=== PATIENT | male | born 1995 | race Caucasian/White ===

== ENCOUNTER 2016-06-25 01:38 | Emergency (ER) | payer OTHER ==
[2016-06-25] MEDS ORDERED: KETOROLAC 30 MG/ML VIAL (J1885) As Ordered ONE (02:43)
[2016-06-25 03:36] LABS: ANION GAP 9 MEQ/L (8-16); BLOOD UREA NITROGEN 12 MG/DL (7-18); CALCIUM LEVEL 8.7 MG/DL (8.5-10.1); CARBON DIOXIDE LEVEL 29 MEQ/L (21-32); CHLORIDE LEVEL 106 MEQ/L (98-107); GLOMERULAR FILTRATION RATE > 60.0 (>60); GLUCOSE, FASTING 85 MG/DL (70-105); POTASSIUM SERUM 3.3 MEQ/L (3.5-5.1); SODIUM LEVEL 144 MEQ/L (136-145)
[2016-06-25] MEDS ORDERED: ISOVUE-370 76% 100ML VIAL (Q9967) As Ordered ONE (03:59)
--- NOTE | 2016-06-25 06:10 | REPUSA ---
CLINICAL HISTORY: Pain, exclude PE. TECHNIQUE: Multiple incremental axial, coronal and oblique images are obtained from the thoracic inle t to the upper abdomen. Intravenous contrast material was administered as per pulmonary embolism prot ocol. COMMENTS: There is excellent opacification of pulmonary arterial system without evidence for pulmonary embolism . Aorta is of normal caliber without evidence for dissection or aneurysm. There is no evidence of pleural or parenchymal mass. There are no pleural effusions. There is no evid ence of hilar or mediastinal lymphadenopathy. The heart and great vessels are within normal limits. Images of the upper abdomen demonstrate no evidence of adrenal mass. The bony structures are free of lytic or blastic lesions. IMPRESSION: No evidence for pulmonary embolism. Thank you for your kind referral of this patient.
--- NOTE | 2016-06-25 06:19 | EDDOCDS ---
Physician Documentation [facility] Name: Mauri Silveira Age: 21 yrs Sex: Male : 1995 Arrival Date: 06/25/2016 Time: 01:38 Bed 14 Private MD: Disposition: 06/25/16 06:09 Discharged to Home/Self Care. Impression: Pleurodynia. - Condition is Stable. - Prescriptions for Prednisone 20 mg Oral Tablet - take 3 tablet by ORAL route once daily for 5 days; 15 tablet. ketorolac 10 mg Oral Tablet - take 1 tablet by ORAL route 3 times per day As needed MDD- 30mg. Up to 5 days total use.; 15 tablet. - Medication Reconciliation, Local Pharmacy Hours form. - Follow up: Private Physician; When: Call to arrange an appointment; Reason: Recheck today's complaints. - Problem is new. - Symptoms have improved. Historical: - Allergies: No known drug Allergies; - Home Meds: 1. none - PMHx: none; - PSHx: Tonsillectomy; - Social history: Smoking status: Cigars No barriers to communication noted, The patient speaks fluent Macanese, Speaks appropriately for age, Preferred Language: Macanese. - Family history: Not pertinent. - : The pt / caregiver states he / she is not on anticoagulants. Home medication list is obtained from the patient. - Exposure Risk Screening:: None identified. Vital Signs: 06/25 01:47 BP 149 / 92; Pulse 83; Resp 16; Temp 97.8(O); Pulse Ox 99% on R/A; Weight 70.31 kg / lf1 155.01 lbs (R); Height 6 ft. 1 in. (185.42 cm) (R); Pain 4/10; 02:37 BP 139 / 90 (auto/); mv5 02:37 Pulse 72 MON; Pulse Ox 96% ; mv5 03:37 BP 127 / 83 (auto/); mv5 03:37 Pulse 64 MON; Pulse Ox 97% ; mv5 04:19 BP 146 / 89 (auto/); mv5 04:20 Pulse 86 MON; Pulse Ox 99% ; mv5 05:00 Pulse 68 MON; Pulse Ox 95% ; mv5 05:30 Pulse 60 MON; Pulse Ox 94% ; mv5 06:12 BP 104 / 56; Pulse 62; Resp 18; Temp 97.2; Pulse Ox 95% on R/A; aria 01:47 Body Mass Index 20.45 (70.31 kg, 185.42 cm) lf1 MDM: 01:47 ECG WITH READING ER PHYS+CARDIAG ordered. EDMS 02:34 IV Saline Lock ordered. cs11 02:34 NS 0.9% 1000 ml IV at bolus once ordered. cs11 02:34 ketorolac 30 mg IVP once ordered. cs11 02:34 MED Profile Ordered. EDMS 02:34 Cardiac Marker Panel Ordered. EDMS 03:20 Financial registration complete. pm4 03:31 [facility] Payment Agreement was scanned into [employer] and attached to record. pm4 03:43 MED Profile Reviewed. cs11 03:43 Cardiac Marker Panel Reviewed. cs11 03:44 CT Chest Angio R/O PE Ordered. EDMS Administered Medications: 03:05 Drug: NS 0.9% 1000 ml [sodium chloride 0.9 % intravenous solution] Route: IV; Rate: mv5 bolus; Site: left antecubital; 04:00 Follow up: IV Status: Completed infusion mv5 03:05 Drug: ketorolac 30 mg [ketorolac 30 mg/mL (1 mL) injection solution (1 mL)] Route: IVP; mv5 Site: left antecubital; 04:42 Follow up: Response: No Adverse Reaction; Pain is decreased mv5 Signatures: Dispatcher [employer] EDMS Nafisa Rock RN RN lf1 Mu Alfaro DO DO cs11 Tobin Shaw, Reg Reg pm4 Silvia BanuelosRN RN mv5 The chart was reviewed and I authenticate all verbal orders and agree with the evaluation and treatment provided.Attachments: 03:31 [facility] Payment Agreement pm4 MTDD
--- NOTE | 2016-06-25 06:19 | EDDOCDS ---
Nurse's Notes [facility] Name: Mauri Silveira Age: 21 yrs Sex: Male : 1995 Arrival Date: 06/25/2016 Time: 01:38 Bed 14 Private MD: Diagnosis: Pleurodynia Presentation: 06/25 01:41 Presenting complaint: Patient states: Left sided chest pain that began 90 minutes ago lf1 while sitting in a chair. Pt. reports no recent illness. Pain is continuous, non radiating and described as constant pressure that is currently 4/10. No cardiac history. No nausea, vomiting or dizziness. Aspirin was not taken prior to arrival. Adult Sepsis Screening: The patient does not have new or worsening altered mentation. Patient's respiratory rate is less than 22. Systolic blood pressure is greater than 100. Patient has a qSOFA score of 0- Negative Sepsis Screen. Suicide/Homicide risk assessment- the patient denies having any suicidal and/or homicidal ideations and does not present with any other emotional, behavioral or mental health complaints. 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 Transition of care: patient was not received from another setting of care. 01:41 Acuity: STEFANI Level 3 lf1 01:41 Method Of Arrival: Walkin/Carried/Asstd lf1 Triage Assessment: 01:47 General: Appears in no apparent distress, comfortable, Behavior is cooperative. Pain: lf1 Location: anterior aspect of left upper chest and left breast Pain currently is 4 out of 10 on a pain scale. Quality of pain is described as pressure, Pain began 2 hours ago Alleviated by nothing. HIV screening NA for this visit. Neurological: Level of Consciousness is awake, alert, Oriented to person, place, time. EENT: No deficits noted. Cardiovascular: Chest pain is described as mild, radiates Does not radiate. episodes are continuous began 2 hours prior to arrival. Respiratory: Respiratory effort is even, unlabored, Denies cough, shortness of breath. GI: Denies nausea, vomiting. Derm: No deficits noted. Injury Description: No known injury. Historical: - Allergies: No known drug Allergies; - Home Meds: 1. none - PMHx: none; - PSHx: Tonsillectomy; - Social history: Smoking status: Cigars No barriers to communication noted, The patient speaks fluent Australian, Speaks appropriately for age, Preferred Language: Australian. - Family history: Not pertinent. - : The pt / caregiver states he / she is not on anticoagulants. Home medication list is obtained from the patient. - Exposure Risk Screening:: None identified. Screenin:49 Screening information is obtained from the patient. Fall risk: No risks identified. lf1 Assistance ADL's: requires no assistance with activities of daily living. Abuse/DV Screen: The patient / caregiver reports he/she is: not in a situation that causes fear, pain or injury. Nutritional screening: No deficits noted. Advance Directives: Currently, there is no health care proxy. There is no active DNR order. home support is adequate. Assessment: 02:11 General: Appears in no apparent distress, well nourished, well groomed, Behavior is mv5 appropriate for age, cooperative, pleasant. Pain: Location: mid-sternal area Pain currently is 3 out of 10 on a pain scale. Pain does not radiate. Neurological: Level of Consciousness is awake, alert, Oriented to person, place, time. Cardiovascular: Capillary refill < 3 seconds Heart tones S1 S2 present Pulses are all present. Rhythm is sinus rhythm No ectopy. Chest pain. Respiratory: Airway is patent Respiratory effort is even, unlabored, Respiratory pattern is regular, symmetrical, Breath sounds are clear bilaterally. GI: No deficits noted. Reports tolerance of food. : Denies. Derm: Skin is pink, warm & dry. 02:37 Cardiovascular: Rhythm is sinus rhythm No ectopy. mv5 03:59 General: Appears in no apparent distress. Cardiovascular: Rhythm is sinus rhythm. mv5 Respiratory: Airway is patent Respiratory effort is even, unlabored. Derm: Skin is pink, warm & dry. 04:41 General: Appears in no apparent distress, Behavior is appropriate for age, cooperative. mv5 Pain: Denies pain. Neurological: Level of Consciousness is awake, alert, Oriented to person, place, time. Cardiovascular: Capillary refill < 3 seconds Rhythm is sinus rhythm No ectopy. Respiratory: Airway is patent Respiratory effort is even, unlabored, Respiratory pattern is regular, symmetrical. Derm: Skin is pink, warm & dry. 05:40 General: Appears to be sleeping. Pain: Denies pain. Cardiovascular: Rhythm is sinus mv5 rhythm No ectopy. Respiratory: Airway is patent Respiratory effort is even, unlabored, Respiratory pattern is regular, symmetrical. Derm: Skin is pink, warm & dry. Vital Signs: 01:47 BP 149 / 92; Pulse 83; Resp 16; Temp 97.8(O); Pulse Ox 99% on R/A; Weight 70.31 kg (R); lf1 Height 6 ft. 1 in. (185.42 cm) (R); Pain 4/10; 02:37 BP 139 / 90 (auto/); mv5 02:37 Pulse 72 MON; Pulse Ox 96% ; mv5 03:37 BP 127 / 83 (auto/); mv5 03:37 Pulse 64 MON; Pulse Ox 97% ; mv5 04:19 BP 146 / 89 (auto/); mv5 04:20 Pulse 86 MON; Pulse Ox 99% ; mv5 05:00 Pulse 68 MON; Pulse Ox 95% ; mv5 05:30 Pulse 60 MON; Pulse Ox 94% ; mv5 06:12 BP 104 / 56; Pulse 62; Resp 18; Temp 97.2; Pulse Ox 95% on R/A; aria 01:47 Body Mass Index 20.45 (70.31 kg, 185.42 cm) lf1 Vitals: 01:47 Log In Time: June 25, 2016 at 01:40. lf1 ED Course: 01:39 Patient visited by Reyna Aceves Reg. hs2 01:39 Patient moved to Waiting hs2 01:41 Patient moved to Triage 1 lf1 01:45 Triage Initiated lf1 01:51 Silvia Banuelos,RN is Primary Nurse. lf1 01:51 Patient moved to 14 lf1 02:04 Patient visited by Silvia Banuelos,GLORIA. mv5 02:06 Patient visited by Alberto Jain PCA. mdr 02:06 EKG done. (by ED staff). Reviewed by Mu Alfaro DO. mdr 02:11 The patient / caregiver is instructed regarding the plan of care and ED course. Cardiac mv5 monitor on. Pulse ox on. NIBP on. 02:29 Mu Alfaro DO is Attending Physician. cs11 02:29 Patient visited by Mu Alfaro DO. cs11 03:05 Cardiac Marker Panel Sent. mv5 03:05 MED Profile Sent. mv5 03:05 Inserted saline lock: 18 gauge in left antecubital area and blood collected. The mv5 patient tolerated the procedure well. 03:06 Patient visited by Silvia Banuelos RN. mv5 03:31 [facility] Payment Agreement was scanned into [employer] and attached to record. pm4 03:59 Patient visited by Silvia Banuelos RN. mv5 04:41 Patient visited by Silvia Banuelos RN. mv5 05:40 Patient visited by Silvia Banuelos RN. mv5 06:12 Patient visited by Stephany Bruce PCA. raia 06:17 Discontinued intact, bleeding controlled, pressure dressing applied, No mv5 redness/swelling at site. No procedures done that require assistance. Administered Medications: 03:05 Drug: NS 0.9% 1000 ml [sodium chloride 0.9 % intravenous solution] Route: IV; Rate: mv5 bolus; Site: left antecubital; 04:00 Follow up: IV Status: Completed infusion mv5 03:05 Drug: ketorolac 30 mg [ketorolac 30 mg/mL (1 mL) injection solution (1 mL)] Route: IVP; mv5 Site: left antecubital; 04:42 Follow up: Response: No Adverse Reaction; Pain is decreased mv5 Order Results: Lab Order: [place]; SPEC'M 06/25/16 02:54 Test: GLUCOSE, FASTING; Value: 85; Range: 70-105; Units: MG/DL; Status: F Test: BLOOD UREA NITROGEN; Value: 12; Range: 7-18; Units: MG/DL; Status: F Test: CREATININE FOR GFR; Value: 0.90; Range: 0.70-1.30; Units: MG/DL; Status: F Test: GLOMERULAR FILTRATION RATE; Value: > 60.0; Range: >60; Status: F Test: SODIUM LEVEL; Value: 144; Range: 136-145; Units: MEQ/L; Status: F Test: POTASSIUM SERUM; Value: 3.3; Range: 3.5-5.1; Abnormal: Below low normal; Units: MEQ/L; Status: F Test: CHLORIDE LEVEL; Value: 106; Range: 98-107; Units: MEQ/L; Status: F Test: CARBON DIOXIDE LEVEL; Value: 29; Range: 21-32; Units: MEQ/L; Status: F Test: ANION GAP; Value: 9; Range: 8-16; Units: MEQ/L; Status: F Test: CALCIUM LEVEL; Value: 8.7; Range: 8.5-10.1; Units: MG/DL; Status: F Test Note: ; Units are mL/min/1.73 m2 Chronic Kidney Disease Staging per NKF: Stage I & II GFR >=60 Normal to Mildly Decreased Stage III GFR 30-59 Moderately Decreased Stage IV GFR 15-29 Severely Decreased Stage V GFR <15 Very Little GFR Left ESRD GFR <15 on [place] Lab Order: Cardiac Marker Panel; SPEC'M 06/25/16 02:54 Test: CPK CREATINE PHOSPHOKINASE; Value: 127; Range: 39-308; Units: U/L; Status: F Test: CK-MB VALUE MASS; Value: 1.2; Range: 0.0-3.6; Units: NG/ML; Status: F Test: MB/CK RELATIVE INDEX; Value: 0.94; Range: < OR =4; Status: F Test: TROPONIN I; Value: < 0.02; Range: < 0.10; Units: NG/ML; Status: F Test Note: ; DIAGNOSIS CRITERIA MMB ng/ml Relative Index (RI) NON-AMI < or = 5 N/A SA[place]ONE > 5 < or = 4 AMI > 5 > 4 Outcome: 06:09 Discharge ordered by Provider. cs11 06:17 Discharge Assessment: Patient awake, alert and oriented x 3. No cognitive and/or mv5 functional deficits noted. Patient verbalized understanding of disposition instructions. patient administered narcotics - no. The following High Risk Discharge criteria are identified: None. Discharged to home. Condition: stable. Discharge instructions given to patient, Demonstrated understanding of Pt was receptive of discharge instructions/ teaching. CT Study completed. Property sent home with patient. 06:18 Patient left the ED. mv5 Signatures: Nafisa Rock,RN RN lf1 Stephany Bruce, POLICE MATRON POLICE MATRON Mu Gregorio, DO cs11 Alberto Jain, POLICE MATRON POLICE MATRON mdr Reyna Aceves, Reg Reg hs2 Tobin Shaw, Reg Reg pm4 Silvia Banuelos,RN RN mv5 MTDD
--- NOTE | 2016-06-26 17:38 | ECGEPIP ---
Stationary ECG Study [facility] - ED Test Date: 2016-06-25 Pat Name: STORM GUERRERO Department: Room: - Gender: M Service Aide: mr : 1995 Requested By: NGUYEN DUONG Order Number: [id number] Reading MD: Karnya Holcomb Measurements Intervals [place] Rate: 72 P: 49 MI: 190 QRS: 94 QRSD: 103 T: 42 QT: 378 QTc: 416 Interpretive Statements SINUS RHYTHM BORDERLINE RIGHT AXIS DEVIATION NO PRIOR FOR COMPARISON Electronically Signed On 06-26-2016 17:38:38 EST by Karyna Holcomb
--- NOTE | 2016-06-27 07:19 | EDDOCDS ---
Physician Documentation [facility] Name: Mauri Silveira Age: 21 yrs Sex: Male : 1995 Arrival Date: 06/25/2016 Time: 01:38 Bed 14 Private MD: Disposition: 06/25/16 06:09 Discharged to Home/Self Care. Impression: Pleurodynia. - Condition is Stable. - Prescriptions for Prednisone 20 mg Oral Tablet - take 3 tablet by ORAL route once daily for 5 days; 15 tablet. ketorolac 10 mg Oral Tablet - take 1 tablet by ORAL route 3 times per day As needed MDD- 30mg. Up to 5 days total use.; 15 tablet. - Medication Reconciliation, Local Pharmacy Hours form. - Follow up: Private Physician; When: Call to arrange an appointment; Reason: Recheck today's complaints. - Problem is new. - Symptoms have improved. Historical: - Allergies: No known drug Allergies; - Home Meds: 1. none - PMHx: none; - PSHx: Tonsillectomy; - Social history: Smoking status: Cigars No barriers to communication noted, The patient speaks fluent Botswanan, Speaks appropriately for age, Preferred Language: Botswanan. - Family history: Not pertinent. - : The pt / caregiver states he / she is not on anticoagulants. Home medication list is obtained from the patient. - Exposure Risk Screening:: None identified. Vital Signs: 06/25 01:47 BP 149 / 92; Pulse 83; Resp 16; Temp 97.8(O); Pulse Ox 99% on R/A; Weight 70.31 kg / lf1 155.01 lbs (R); Height 6 ft. 1 in. (185.42 cm) (R); Pain 4/10; 02:37 BP 139 / 90 (auto/); mv5 02:37 Pulse 72 MON; Pulse Ox 96% ; mv5 03:37 BP 127 / 83 (auto/); mv5 03:37 Pulse 64 MON; Pulse Ox 97% ; mv5 04:19 BP 146 / 89 (auto/); mv5 04:20 Pulse 86 MON; Pulse Ox 99% ; mv5 05:00 Pulse 68 MON; Pulse Ox 95% ; mv5 05:30 Pulse 60 MON; Pulse Ox 94% ; mv5 06:12 BP 104 / 56; Pulse 62; Resp 18; Temp 97.2; Pulse Ox 95% on R/A; aria 01:47 Body Mass Index 20.45 (70.31 kg, 185.42 cm) lf1 MDM: 01:47 ECG WITH READING ER PHYS+CARDIAG ordered. EDMS 02:34 IV Saline Lock ordered. cs11 02:34 NS 0.9% 1000 ml IV at bolus once ordered. cs11 02:34 ketorolac 30 mg IVP once ordered. cs11 02:34 MED Profile Ordered. EDMS 02:34 Cardiac Marker Panel Ordered. EDMS 03:20 Financial registration complete. pm4 03:31 [facility] Payment Agreement was scanned into [email or web address] and attached to record. pm4 03:43 MED Profile Reviewed. cs11 03:43 Cardiac Marker Panel Reviewed. cs11 03:44 CT Chest Angio R/O PE Ordered. EDMS 06/26 14:08 T-Sheet-- Draft Copy was scanned into [email or web address] and attached to record. gb 14:09 ECG/EKG was scanned into [email or web address] and attached to record. gb Administered Medications: 06/25 03:05 Drug: NS 0.9% 1000 ml [sodium chloride 0.9 % intravenous solution] Route: IV; Rate: mv5 bolus; Site: left antecubital; 04:00 Follow up: IV Status: Completed infusion mv5 03:05 Drug: ketorolac 30 mg [ketorolac 30 mg/mL (1 mL) injection solution (1 mL)] Route: IVP; mv5 Site: left antecubital; 04:42 Follow up: Response: No Adverse Reaction; Pain is decreased mv5 Signatures: Dispatcher [employer] EDMS Tracy Mitchell, Reg Reg gb Nafisa Rock,RN RN lf1 Mu Alfaro DO DO cs11 Tobin Shaw, Reg Reg pm4 Silvia Banuelos,RN RN mv5 The chart was reviewed and I authenticate all verbal orders and agree with the evaluation and treatment provided.Attachments: 03:31 [facility] Payment Agreement pm4 06/26 14:08 T-Sheet-- Draft Copy gb 14:09 ECG/EKG gb Chart Complete MTDD
--- NOTE | 2016-06-27 07:19 | EDDOCDS ---
Nurse's Notes [facility] Name: Mauri Guerrero Age: 21 yrs Sex: Male : 1995 Arrival Date: 06/25/2016 Time: 01:38 Bed 14 Private MD: Diagnosis: Pleurodynia Presentation: 06/25 01:41 Presenting complaint: Patient states: Left sided chest pain that began 90 minutes ago lf1 while sitting in a chair. Pt. reports no recent illness. Pain is continuous, non radiating and described as constant pressure that is currently 4/10. No cardiac history. No nausea, vomiting or dizziness. Aspirin was not taken prior to arrival. Adult Sepsis Screening: The patient does not have new or worsening altered mentation. Patient's respiratory rate is less than 22. Systolic blood pressure is greater than 100. Patient has a qSOFA score of 0- Negative Sepsis Screen. Suicide/Homicide risk assessment- the patient denies having any suicidal and/or homicidal ideations and does not present with any other emotional, behavioral or mental health complaints. Status: Patient is not a patient service associate or dependent. Transition of care: patient was not received from another setting of care. 01:41 Acuity: STEFANI Level 3 lf1 01:41 Method Of Arrival: Walkin/Carried/Asstd lf1 Triage Assessment: 01:47 General: Appears in no apparent distress, comfortable, Behavior is cooperative. Pain: lf1 Location: anterior aspect of left upper chest and left breast Pain currently is 4 out of 10 on a pain scale. Quality of pain is described as pressure, Pain began 2 hours ago Alleviated by nothing. HIV screening NA for this visit. Neurological: Level of Consciousness is awake, alert, Oriented to person, place, time. EENT: No deficits noted. Cardiovascular: Chest pain is described as mild, radiates Does not radiate. episodes are continuous began 2 hours prior to arrival. Respiratory: Respiratory effort is even, unlabored, Denies cough, shortness of breath. GI: Denies nausea, vomiting. Derm: No deficits noted. Injury Description: No known injury. Historical: - Allergies: No known drug Allergies; - Home Meds: 1. none - PMHx: none; - PSHx: Tonsillectomy; - Social history: Smoking status: Cigars No barriers to communication noted, The patient speaks fluent Guamanian, Speaks appropriately for age, Preferred Language: Guamanian. - Family history: Not pertinent. - : The pt / caregiver states he / she is not on anticoagulants. Home medication list is obtained from the patient. - Exposure Risk Screening:: None identified. Screenin:49 Screening information is obtained from the patient. Fall risk: No risks identified. lf1 Assistance ADL's: requires no assistance with activities of daily living. Abuse/DV Screen: The patient / caregiver reports he/she is: not in a situation that causes fear, pain or injury. Nutritional screening: No deficits noted. Advance Directives: Currently, there is no health care proxy. There is no active DNR order. home support is adequate. Assessment: 02:11 General: Appears in no apparent distress, well nourished, well groomed, Behavior is mv5 appropriate for age, cooperative, pleasant. Pain: Location: mid-sternal area Pain currently is 3 out of 10 on a pain scale. Pain does not radiate. Neurological: Level of Consciousness is awake, alert, Oriented to person, place, time. Cardiovascular: Capillary refill < 3 seconds Heart tones S1 S2 present Pulses are all present. Rhythm is sinus rhythm No ectopy. Chest pain. Respiratory: Airway is patent Respiratory effort is even, unlabored, Respiratory pattern is regular, symmetrical, Breath sounds are clear bilaterally. GI: No deficits noted. Reports tolerance of food. : Denies. Derm: Skin is pink, warm & dry. 02:37 Cardiovascular: Rhythm is sinus rhythm No ectopy. mv5 03:59 General: Appears in no apparent distress. Cardiovascular: Rhythm is sinus rhythm. mv5 Respiratory: Airway is patent Respiratory effort is even, unlabored. Derm: Skin is pink, warm & dry. 04:41 General: Appears in no apparent distress, Behavior is appropriate for age, cooperative. mv5 Pain: Denies pain. Neurological: Level of Consciousness is awake, alert, Oriented to person, place, time. Cardiovascular: Capillary refill < 3 seconds Rhythm is sinus rhythm No ectopy. Respiratory: Airway is patent Respiratory effort is even, unlabored, Respiratory pattern is regular, symmetrical. Derm: Skin is pink, warm & dry. 05:40 General: Appears to be sleeping. Pain: Denies pain. Cardiovascular: Rhythm is sinus mv5 rhythm No ectopy. Respiratory: Airway is patent Respiratory effort is even, unlabored, Respiratory pattern is regular, symmetrical. Derm: Skin is pink, warm & dry. Vital Signs: 01:47 BP 149 / 92; Pulse 83; Resp 16; Temp 97.8(O); Pulse Ox 99% on R/A; Weight 70.31 kg (R); lf1 Height 6 ft. 1 in. (185.42 cm) (R); Pain 4/10; 02:37 BP 139 / 90 (auto/); mv5 02:37 Pulse 72 MON; Pulse Ox 96% ; mv5 03:37 BP 127 / 83 (auto/); mv5 03:37 Pulse 64 MON; Pulse Ox 97% ; mv5 04:19 BP 146 / 89 (auto/); mv5 04:20 Pulse 86 MON; Pulse Ox 99% ; mv5 05:00 Pulse 68 MON; Pulse Ox 95% ; mv5 05:30 Pulse 60 MON; Pulse Ox 94% ; mv5 06:12 BP 104 / 56; Pulse 62; Resp 18; Temp 97.2; Pulse Ox 95% on R/A; aria 01:47 Body Mass Index 20.45 (70.31 kg, 185.42 cm) lf1 Vitals: 01:47 Log In Time: June 25, 2016 at 01:40. lf1 ED Course: 01:39 Patient visited by Reyna Aceves Reg. hs2 01:39 Patient moved to Waiting hs2 01:41 Patient moved to Triage 1 lf1 01:45 Triage Initiated lf1 01:51 Silvia Banuelos,RN is Primary Nurse. lf1 01:51 Patient moved to 14 lf1 02:04 Patient visited by Silvia Banuelos,GLORIA. mv5 02:06 Patient visited by Alberto Jain PCA. mdr 02:06 EKG done. (by ED staff). Reviewed by Nguyen Duong DO. mdr 02:11 The patient / caregiver is instructed regarding the plan of care and ED course. Cardiac mv5 monitor on. Pulse ox on. NIBP on. 02:29 Nguyen Duong DO is Attending Physician. cs11 02:29 Patient visited by Nguyen Duong DO. cs11 03:05 Cardiac Marker Panel Sent. mv5 03:05 MED Profile Sent. mv5 03:05 Inserted saline lock: 18 gauge in left antecubital area and blood collected. The mv5 patient tolerated the procedure well. 03:06 Patient visited by Silvia Banuelos RN. mv5 03:31 [facility] Payment Agreement was scanned into [employer] and attached to record. pm4 03:59 Patient visited by Silvia Banuelos RN. mv5 04:41 Patient visited by Silvia Banuelos RN. mv5 05:40 Patient visited by Silvia Banuelos,GLORIA. mv5 06:12 Patient visited by Stephany Bruce, SATURN[place]. aria 06:17 Discontinued intact, bleeding controlled, pressure dressing applied, No mv5 redness/swelling at site. No procedures done that require assistance. 06:21 CT Chest Angio R/O PE Returned. EDMS 06/26 14:08 T-Sheet-- Draft Copy was scanned into [employer] and attached to record. gb 14:09 ECG/EKG was scanned into [employer] and attached to record. gb 18:15 EKG-ADULT Returned. EDMS Administered Medications: 06/25 03:05 Drug: NS 0.9% 1000 ml [sodium chloride 0.9 % intravenous solution] Route: IV; Rate: mv5 bolus; Site: left antecubital; 04:00 Follow up: IV Status: Completed infusion mv5 03:05 Drug: ketorolac 30 mg [ketorolac 30 mg/mL (1 mL) injection solution (1 mL)] Route: IVP; mv5 Site: left antecubital; 04:42 Follow up: Response: No Adverse Reaction; Pain is decreased mv5 Order Results: Lab Order: MED Profile; SPEC'M 06/25/16 02:54 Test: GLUCOSE, FASTING; Value: 85; Range: 70-105; Units: MG/DL; Status: F Test: BLOOD UREA NITROGEN; Value: 12; Range: 7-18; Units: MG/DL; Status: F Test: CREATININE FOR GFR; Value: 0.90; Range: 0.70-1.30; Units: MG/DL; Status: F Test: GLOMERULAR FILTRATION RATE; Value: > 60.0; Range: >60; Status: F Test: SODIUM LEVEL; Value: 144; Range: 136-145; Units: MEQ/L; Status: F Test: POTASSIUM SERUM; Value: 3.3; Range: 3.5-5.1; Abnormal: Below low normal; Units: MEQ/L; Status: F Test: CHLORIDE LEVEL; Value: 106; Range: 98-107; Units: MEQ/L; Status: F Test: CARBON DIOXIDE LEVEL; Value: 29; Range: 21-32; Units: MEQ/L; Status: F Test: ANION GAP; Value: 9; Range: 8-16; Units: MEQ/L; Status: F Test: CALCIUM LEVEL; Value: 8.7; Range: 8.5-10.1; Units: MG/DL; Status: F Test Note: ; Units are mL/min/1.73 m2 Chronic Kidney Disease Staging per NKF: Stage I & II GFR >=60 Normal to Mildly Decreased Stage III GFR 30-59 Moderately Decreased Stage IV GFR 15-29 Severely Decreased Stage V GFR <15 Very Little GFR Left ESRD GFR <15 on 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 Lab Order: Cardiac Marker Panel; [facility] 06/25/16 02:54 Test: CPK CREATINE PHOSPHOKINASE; Value: 127; Range: 39-308; Units: U/L; Status: F Test: CK-MB VALUE MASS; Value: 1.2; Range: 0.0-3.6; Units: NG/ML; Status: F Test: MB/CK RELATIVE INDEX; Value: 0.94; Range: < OR =4; Status: F Test: TROPONIN I; Value: < 0.02; Range: < 0.10; Units: NG/ML; Status: F Test Note: ; DIAGNOSIS CRITERIA MMB ng/ml Relative Index (RI) NON-AMI < or = 5 N/A SAINZ [place]ONE > 5 < or = 4 AMI > 5 > 4 Radiology Order: EKG-ADULT Test: EKG-ADULT REASON FOR EXAMINATION: Chest Pain; Stationary ECG Study; [facility] - ED; ; Test Date: 2016-06-25; Pat Name: MAURI GUERRERO Department:; Room: -; 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: M 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; : 1995 Requested By: NGUYEN DUONG; Order Number: [id number] Reading MD: Karyna Holcomb; Measurements; Intervals [place]; Rate: 72 P: 49; MN: 190 QRS: 94; QRSD: 103 T: 42; QT: 378; QTc: 416; Interpretive Statements; SINUS RHYTHM; BORDERLINE RIGHT AXIS DEVIATION; NO PRIOR FOR COMPARISON; Electronically Signed On 06-26-2016 17:38:38 EST by Karyna Holcomb; Radiology Order: CT Chest Angio R/O PE Test: CT Chest Angio R/O PE REASON FOR EXAMINATION: Chest Pain; ; CLINICAL HISTORY: Pain, exclude PE.; TECHNIQUE: Multiple incremental axial, coronal and oblique images are obtained from the thoracic inle; t to the upper abdomen. Intravenous contrast material was administered as per pulmonary embolism prot; ocol.; COMMENTS:; There is excellent opacification of pulmonary arterial system without evidence for pulmonary embolism; . Aorta is of normal caliber without evidence for dissection or aneurysm.; There is no evidence of pleural or parenchymal mass. There are no pleural effusions. There is no evid; ence of hilar or mediastinal lymphadenopathy. The heart and great vessels are within normal limits.; Images of the upper abdomen demonstrate no evidence of adrenal mass.; The bony structures are free of lytic or blastic lesions.; IMPRESSION:; No evidence for pulmonary embolism.; Thank you for your kind referral of this patient.; ; Outcome: 06:09 Discharge ordered by Provider. cs11 06:17 Discharge Assessment: Patient awake, alert and oriented x 3. No cognitive and/or mv5 functional deficits noted. Patient verbalized understanding of disposition instructions. patient administered narcotics - no. The following High Risk Discharge criteria are identified: None. Discharged to home. Condition: stable. Discharge instructions given to patient, Demonstrated understanding of Pt was receptive of discharge instructions/ teaching. CT Study completed. Property sent home with patient. 06:18 Patient left the ED. mv5 Signatures: Dispatcher [employer] EDMS Tracy Mitchell, Reg Reg gb Nafisa Rock,RN RN lf1 Stephany Bruce, ROLL ON WORKER ROLL ON WORKER Nguyen Gregorio, DO DO cs11 Alberto Jain, ROLL ON WORKER ROLL ON WORKER Reyna Queen, Reg Reg hs2 Tobin Shaw, Reg Reg pm4 Silvia Banuelos,RN RN mv5 Chart Complete MTDD
--- NOTE | 2016-06-27 07:19 | EDDOCDS ---
Physician Documentation [facility] Name: Mauri Silveira Age: 21 yrs Sex: Male : 1995 Arrival Date: 06/25/2016 Time: 01:38 Bed 14 Private MD: Disposition: 06/25/16 06:09 Discharged to Home/Self Care. Impression: Pleurodynia. - Condition is Stable. - Prescriptions for Prednisone 20 mg Oral Tablet - take 3 tablet by ORAL route once daily for 5 days; 15 tablet. ketorolac 10 mg Oral Tablet - take 1 tablet by ORAL route 3 times per day As needed MDD- 30mg. Up to 5 days total use.; 15 tablet. - Medication Reconciliation, Local Pharmacy Hours form. - Follow up: Private Physician; When: Call to arrange an appointment; Reason: Recheck today's complaints. - Problem is new. - Symptoms have improved. Historical: - Allergies: No known drug Allergies; - Home Meds: 1. none - PMHx: none; - PSHx: Tonsillectomy; - Social history: Smoking status: Cigars No barriers to communication noted, The patient speaks fluent Lithuanian, Speaks appropriately for age, Preferred Language: Lithuanian. - Family history: Not pertinent. - : The pt / caregiver states he / she is not on anticoagulants. Home medication list is obtained from the patient. - Exposure Risk Screening:: None identified. Vital Signs: 06/25 01:47 BP 149 / 92; Pulse 83; Resp 16; Temp 97.8(O); Pulse Ox 99% on R/A; Weight 70.31 kg / lf1 155.01 lbs (R); Height 6 ft. 1 in. (185.42 cm) (R); Pain 4/10; 02:37 BP 139 / 90 (auto/); mv5 02:37 Pulse 72 MON; Pulse Ox 96% ; mv5 03:37 BP 127 / 83 (auto/); mv5 03:37 Pulse 64 MON; Pulse Ox 97% ; mv5 04:19 BP 146 / 89 (auto/); mv5 04:20 Pulse 86 MON; Pulse Ox 99% ; mv5 05:00 Pulse 68 MON; Pulse Ox 95% ; mv5 05:30 Pulse 60 MON; Pulse Ox 94% ; mv5 06:12 BP 104 / 56; Pulse 62; Resp 18; Temp 97.2; Pulse Ox 95% on R/A; aria 01:47 Body Mass Index 20.45 (70.31 kg, 185.42 cm) lf1 MDM: 01:47 ECG WITH READING ER PHYS+CARDIAG ordered. EDMS 02:34 IV Saline Lock ordered. cs11 02:34 NS 0.9% 1000 ml IV at bolus once ordered. cs11 02:34 ketorolac 30 mg IVP once ordered. cs11 02:34 MED Profile Ordered. EDMS 02:34 Cardiac Marker Panel Ordered. EDMS 03:20 Financial registration complete. pm4 03:31 [facility] Payment Agreement was scanned into [employer] and attached to record. pm4 03:43 MED Profile Reviewed. cs11 03:43 Cardiac Marker Panel Reviewed. cs11 03:44 CT Chest Angio R/O PE Ordered. EDMS 06/26 14:08 T-Sheet-- Draft Copy was scanned into [employer] and attached to record. gb 14:09 ECG/EKG was scanned into [employer] and attached to record. gb Administered Medications: 06/25 03:05 Drug: NS 0.9% 1000 ml [sodium chloride 0.9 % intravenous solution] Route: IV; Rate: mv5 bolus; Site: left antecubital; 04:00 Follow up: IV Status: Completed infusion mv5 03:05 Drug: ketorolac 30 mg [ketorolac 30 mg/mL (1 mL) injection solution (1 mL)] Route: IVP; mv5 Site: left antecubital; 04:42 Follow up: Response: No Adverse Reaction; Pain is decreased mv5 Signatures: Dispatcher [employer] EDMS Tracy Mitchell, Reg Reg gb Nafisa Rock,RN RN lf1 Mu Alfaro DO DO cs11 Tobin Shaw, Reg Reg pm4 Silvia Banuelos,RN RN mv5 The chart was reviewed and I authenticate all verbal orders and agree with the evaluation and treatment provided.Attachments: 03:31 [facility] Payment Agreement pm4 06/26 14:08 T-Sheet-- Draft Copy gb 14:09 ECG/EKG gb Chart Complete MTDD
== END 2016-06-25 06:18 | disposition home or self-care (01) ==
LOC: M ED 01:38
DX: R07.81 Pleurodynia (principal); F17.210 Nicotine dependence, cigarettes, uncomplicated
CPT/HCPCS: 36415; 71275; 80048; 82550; 82553; 93005; 96361; 96374; 99285; J1885; Q9967

== ENCOUNTER 2016-11-18 23:08 | Emergency (ER) | payer OTHER ==
[~2016-11-18] VITALS: Ht 185.4 cm; Wt 70.8 kg
[2016-11-18] MEDS ORDERED: MINO100C4 PO (23:22)
[2016-11-18] MEDS ORDERED: ESZO1TAB PO (23:22)
[2016-11-19] MEDS ORDERED: IBUP-1022 PO (00:57)
[2016-11-19] MEDS ORDERED: CYCL10TA PO (00:57)
[2016-11-19 01:14] VITALS: BP 138/95
== END 2016-11-19 01:17 | disposition home or self-care (01) ==
LOC: M ED 23:08
DX: Z04.3 Encounter for examination and observation following other accident (principal); M54.2 Cervicalgia; M62.838 Other muscle spasm

== ENCOUNTER 2016-12-03 23:32 | Emergency (ER) | payer OTHER ==
[~2016-12-03] VITALS: Ht 185.4 cm; Wt 70.5 kg
[~2016-12-03 23:32] MED LIST: CYCL10TA PO; ESZO1TAB PO; IBUP-1022 PO; MINO100C4 PO
[2016-12-03 23:34] VITALS: BP 159/100
--- NOTE | 2016-12-04 04:53 | ED PDOC ---
Post-Departure Follow-Up This record was completely partially or completely on paper due to electronic EMR downtime. Please see the scanned paper chart attached. Karyna Holcomb MD Dec 04, 2016 04:53
--- NOTE | 2016-12-04 07:06 | REP ---
Left hand four views: There are no comparisons. There is no fracture or dislocation. Mineralization joint spaces are normal. There is a focal lucency in the distal shaft of the fifth digit metacarpal with adjacent endosteal scalloping of the lateral cortex. Recommend MRI follow-up to evaluate for an expansile lesion. Signed by Clarence Qiu MD 12/04/2016 06:58 A
--- NOTE | 2016-12-04 10:46 | ED PDOC ---
Post-Departure Follow-Up radiology report reviewed - charge nurse calling patient - return for MRI order. Karyna Holcomb MD Dec 04, 2016 10:46
--- NOTE | 2016-12-11 08:41 | ED PDOC ---
Post-Departure Follow-Up mri hand back. certified letter sent to pt re formal read of mri ordered when pt lwbs and had xray done prior to leaving. chart review. will send certified letter. Sal Canales MD Dec 11, 2016 08:41
== END 2016-12-04 05:10 | disposition home or self-care (01) ==
LOC: M ED 23:32
DX: S60.222A Contusion of left hand, initial encounter (principal); W22.8XXA Striking against or struck by other objects, initial encounter; Y92.410 Unspecified street and highway as the place of occurrence of the external cause; Y93.89 Activity, other specified; F17.200 Nicotine dependence, unspecified, uncomplicated; Z79.899 Other long term (current) drug therapy

== ENCOUNTER → 2016-12-10 | Outpatient (CLI) | payer OTHER ==
--- NOTE | 2016-12-10 12:09 | REP ---
MRI LEFT HAND: Multiple sequences obtained in the axial, sagittal and coronal planes. Correlation made with recent plain films of the left hand 12/03/2016 which show a small lucent lesion in the distal fifth metacarpal. MR images are centered in that region. There is an oval bone lesion in the distal shaft of the fifth metacarpal with a sharp zone of transition. This is hypointense on T1 and markedly hyperintense on T2. It measures approximately 6 x 3 x 4 mm. It is consistent with a benign cystic lesion. No other bone lesions are seen in the visualized osseous structures. No bone marrow edema or occult fracture is seen of the visualized osseous structures. No abnormal soft tissue signal is seen with no edema, fluid collection or tendinous abnormality. IMPRESSION: Benign bone lesion distal shaft of the fifth metacarpal as discussed in detail above. Signed by Clarence Julian MD 12/10/2016 03:29 P
== END ==
LOC: M RAD 10:12
PROVIDERS: ATTEND Emergency Medicine
DX: M85.442 Solitary bone cyst, left hand (principal)

== ENCOUNTER → 2017-03-31 | Outpatient (REF) | payer OTHER | LOC: M LAB REF 09:17 | PROVIDERS: ATTEND Physician Assistant Medical | DX: Z20.2 Contact with and (suspected) exposure to infections with a predominantly sexual mode of transmission (principal); N39.0 Urinary tract infection, site not specified ==

== ENCOUNTER 2019-01-19 08:49 | Emergency (ER) | payer OTHER ==
[~2019-01-19] VITALS: Ht 185.4 cm; Wt 78.6 kg
[2019-01-19 08:49] VITALS: BP 136/84
[~2019-01-19 08:49] MED LIST changes: -ESZO1TAB PO; +ESZO1TAB4 PO
[2019-01-19] MEDS ORDERED: FLON1SPR NARES (09:59)
[2019-01-19] MEDS ORDERED: CETI10CA2 PO (09:59)
== END 2019-01-19 10:08 | disposition home or self-care (01) ==
LOC: M ED 08:49
DX: J30.9 Allergic rhinitis, unspecified (principal); F17.210 Nicotine dependence, cigarettes, uncomplicated

== ENCOUNTER 2021-02-27 10:22 | Emergency (ER) | payer OTHER ==
[~2021-02-27] VITALS: Ht 185.4 cm; Wt 75.1 kg
[2021-02-27 10:22] VITALS: BP 129/89
[~2021-02-27 10:22] MED LIST changes: +CETI10CA2 PO; +CYCL-707 PO; -CYCL10TA PO; +FLON1SPR NARES
== END 2021-02-28 06:27 | disposition left against medical advice (07) ==
LOC: M ED 10:22
DX: Z53.21 Procedure and treatment not carried out due to patient leaving prior to being seen by health care provider (principal)

== ENCOUNTER → 2024-03-09 | Outpatient (CLI) | payer OTHER | LOC: M EKG 11:04 | PROVIDERS: ATTEND Physician Assistant Medical | DX: I49.9 Cardiac arrhythmia, unspecified (principal) ==